=== PATIENT | male | born 1965 | race Caucasian/White ===

== ENCOUNTER 2020-01-12 19:03 | Emergency (ER) | payer BC ==
--- NOTE | 2020-01-12 19:23 | EDM.PDOC ---
ED HPI GENERAL MEDICAL PROBLEM - General Chief Complaint: Laceration Stated Complaint: LACERATION Time Seen by Provider: 01/12/20 19:15 Source of Information: Reports: Patient, RN History Limitations: Reports: No Limitations - History of Present Illness INITIAL COMMENTS - FREE TEXT/NARRATIVE: Patient was using a machine to make margaritas - He cut his 3rd finger right hand removing part of his nail and the tip of his finger. A friend applied pressure and bandaged the finger so he could be brought in to the ER He has had 4-6 servings of alcohol based on his recall of drinks and size of drinks. Does not appear intoxicated. He states he has been drinking plenty of water as well Onset: Today, Sudden Onset Date: 01/12/20 Onset Time: 17:00 (just prior to arrival) Duration: Minutes: Location: Reports: Upper Extremity, Right Quality: Reports: Throbbing Severity: Moderate Improves with: Reports: Immobilization Worsens with: Reports: Movement Associated Symptoms: Reports: No Other Symptoms Treatments PRICE LISTER: Reports: Dressing(s) Right Finger-Middle Pain Score (Numeric/FACES): 3 - Related Data Allergies Allergy/AdvReac Type Severity Reaction Status Date / Time No Known Allergies Allergy Verified 01/12/20 19:58 ED ROS GENERAL - Review of Systems Review Of Systems: See Below Constitutional: Reports: No Symptoms HEENT: Reports: No Symptoms Respiratory: Reports: No Symptoms Cardiovascular: Reports: No Symptoms Endocrine: Reports: No Symptoms GI/Abdominal: Reports: No Symptoms : Reports: No Symptoms Musculoskeletal: Reports: Other (end of finger removed with clean non surrated sharp blade) Skin: Reports: Wound (loss of end of finger - unsure of bone involvement - loss of index finger side with partial loss of nail) Neurological: Reports: No Symptoms Psychiatric: Reports: No Symptoms Hematologic/Lymphatic: Reports: No Symptoms Immunologic: Reports: No Symptoms ED EXAM, SKIN/RASH Exam: See Below Text/Narrative:: Loss of the end of middle digit right hand - index finger side with partial nail removal. Most of fat pad missing - unsure of bone involvement. Nurse unwrapped bandage and removed gauze. Patient does have sensation at the end of the f lois. Finger was soaked. Finger continued to bleed minimal amount. Nurse applied antibiotic ointment and non-adherent gauze then re-wrapped with kerlix and coban. Patient went to xray Exam Limited By: No Limitations (patient has been drinking by his admission but does not appear intoxicated) General Appearance: Alert, WD/WN, No Apparent Distress Respiratory/Chest: No Respiratory Distress, Lungs Clear, Normal Breath Sounds Cardiovascular: Normal Peripheral Pulses, Regular Rate, Rhythm Course - Vital Signs Last Recorded V/S: Last Vital Signs Temp 36.3 C 01/12/20 19:07 Pulse 71 01/12/20 19:07 Resp 16 01/12/20 19:07 BP 153/92 H 01/12/20 19:07 Pulse Ox 98 01/12/20 19:07 - Orders/Labs/Meds Orders: Active Orders 24 hr Category Date Time Status Vaccines to be Administered [RC] PER UNIT ROUTINE Care 01/12/20 20:00 Active Fingers Third Digit Rt F7 [CR] Stat Exams 01/12/20 19:16 Taken Meds: Medications Discontinued Medications Generic Name Dose Route Start Last Admin Trade Name Freq PRN Reason Stop Dose Admin Tetanus/Diphtheria Toxoids 0.5 ml 01/12/20 19:58 Tenivac IM 01/12/20 19:59 .ONCE ONE Departure - Departure Time of Disposition: 19:58 Disposition: Home, Self-Care 01 Condition: Good Clinical Impression: Laceration - Discharge Information *PRESCRIPTION DRUG MONITORING PROGRAM REVIEWED*: Not Applicable *COPY OF PRESCRIPTION DRUG MONITORING REPORT IN PATIENT SHIMON: Not Applicable Instructions: Wound Infection, [id number] Referrals: PCP,None [Primary Care Provider] - Forms: ED Department Discharge Additional Instructions: Keep affected area clean and dry. Leave dressing in place for next 24 hours, then may remove, cleanse gently with warm water and soap, dab dry. Reapply dressing as follows: thin strip of antibiotic ointment, cover with non-adherent dressing such as Telfa, wrap with gauze, secure with tape and then cover with coban to continue to apply pressure. Be sure to monitor for any signs and symptoms of infection present including: increased redness, increased swelling, increased pain or tenderness to touch, foul drainage, and/or fever present. Should any of these symptoms occur, return to be seen right away. May take Naprosyn every 12 hours as needed for pain. Follow up with regular provider as needed. Call with any questions. Sepsis Event Note (ED) - Focused Exam Vital Signs: Vital Signs Temp Pulse Resp BP Pulse Ox 01/12/20 19:07 36.3 C 71 16 153/92 H 98 - My Orders Last 24 Hours: My Active Orders 01/12/20 19:16 Fingers Third Digit Rt F7 [CR] Stat 01/12/20 20:00 Vaccines to be Administered [RC] PER UNIT ROUTINE - Assessment/Plan Last 24 Hours: My Active Orders 01/12/20 19:16 Fingers Third Digit Rt F7 [CR] Stat 01/12/20 20:00 Vaccines to be Administered [RC] PER UNIT ROUTINE
[2020-01-12] MEDS ORDERED: Diphtheria/Tetanus Toxoids,Adult (Td) 0.5 ML SDV IM ONE (19:58)
--- NOTE | 2020-01-13 10:27 | CR ---
DATE OF SERVICE: 01/12/20 CLINICAL DATA: injury RIGHT THIRD DIGIT: There is soft tissue swelling and deformity adjacent to the distal phalanx. No acute fracture or dislocation. No lytic or blastic bone lesions. [id number] [facility]
== END 2020-01-12 19:58 | disposition home or self-care (01) ==
LOC: LB.ED 19:03
DX: S61.212A Laceration without foreign body of right middle finger without damage to nail, initial encounter (principal); Z23 Encounter for immunization; W31.89XA Contact with other specified machinery, initial encounter
CPT/HCPCS: 11730; 73140-F7; 90471; 90714; 99283; 99283-25